=== PATIENT | male | born 1995 ===

== ENCOUNTER 2023-08-10 17:30 | Emergency (ER) | payer OTHER, SELFPAY ==
--- NOTE | ~2023-08-10 | XR_ITS ---
Radiograph bilateral hands and wrists CLINICAL HISTORY: Punched TV, laceration, pain. COMPARISON: No relevant prior studies are available for comparison. TECHNIQUE: 4 views of each hand/wrist were obtained. FINDINGS: Soft tissue thickening and laceration surrounding the fifth digit/small finger with a small approximately 4 mm radiodensity in the soft tissues adjacent to the distal aspect of the fifth metacarpal. No acute fractures or malalignment. XR/XR hand wrist LT IMPRESSION: 1. No acute fractures or malalignment. 2. Soft tissue thickening and laceration surrounding the fifth digit/small finger of the left hand with a 4 mm radiodensity in the soft tissues adjacent to the fifth metacarpal that could represent a foreign body, correlate with physical examination.
--- NOTE | ~2023-08-10 | XR_ITS ---
Radiograph bilateral hands and wrists CLINICAL HISTORY: Punched TV, laceration, pain. COMPARISON: No relevant prior studies are available for comparison. TECHNIQUE: 4 views of each hand/wrist were obtained. FINDINGS: Soft tissue thickening and laceration surrounding the fifth digit/small finger with a small approximately 4 mm radiodensity in the soft tissues adjacent to the distal aspect of the fifth metacarpal. No acute fractures or malalignment. XR/XR hand wrist RT IMPRESSION: 1. No acute fractures or malalignment. 2. Soft tissue thickening and laceration surrounding the fifth digit/small finger of the left hand with a 4 mm radiodensity in the soft tissues adjacent to the fifth metacarpal that could represent a foreign body, correlate with physical examination.
[2023-08-10 17:42] VITALS: BP 141/89; PULSE 80; RESP 18; TEMP 37.7; O2SAT 99; BMI 27.5
--- NOTE | 2023-08-10 17:51 | ED_ITS ---
HPI - Wound/Laceration General Chief Complaint: Wound/Laceration Stated Complaint: left hand lac Time Seen by Provider: 08/10/23 20:07 Source: patient Mode of arrival: ambulatory Limitations: no limitations History of Present Illness HPI narrative: Patient is a 28-year-old male right-hand dominant presents emergency department for evaluation. He reports punching a television with bilateral hands prior to arrival. Reports pain to both hands diffusely but left is worse than right. He is unsure of the date of his last tetanus vaccination. He denies any numbness or tingling to the hands, Related Data Allergies Allergy/AdvReac Type Severity Reaction Status Date / Time No Known Allergies Allergy Verified 08/11/23 00:14 Review of Systems Review of Systems: Yes all other systems are reviewed and are negative [facility] Past Medical History Attestation statement: The following information was validated with the patient. Source: old records reviewed Social History Social History Do you have a plan to hurt others: No Plan Physical Exam Vital Signs: Vital Signs: Last Vital Signs Temp 99.9 F 08/10/23 17:42 Pulse 80 08/10/23 17:42 Resp 18 08/10/23 17:42 BP 141/89 H 08/10/23 17:42 Pulse Ox 99 08/10/23 17:42 O2 Del Method Room Air 08/10/23 17:42 BMI result Body Mass Index 27.5 Appearance: Alert.?Oriented to person, place and time. No acute distress.?Normal affect. Neck: Normal inspection.? Neck supple.?? CVS: Heart sounds normal. Normal heart rate and rhythm.? Pulses normal.?? Respiratory: No respiratory distress.? Lung sounds clear to auscultation bilaterally?? Abdomen: Soft and non-tender. Normoactive bowel sounds. No pulsatile mass.?? Skin: Skin warm and dry.? Normal skin color.? ? 1 inch Laceration to dorsal aspect of left hand between 4th and 5th MCP Extremities: Full range of motion to bilateral hands/digit/wrist. 2+ radial pulse bilaterally. Neuro: Moves all extremities spontaneously. Sensation intact bilaterally. Ambulates with normal steady gait. Course Course Course Narrative: This is a rapid medical exam performed by Chele Hewitt NP: Additional HPI, ROS, PE not included below will be deferred to primary provider. Patient is a 28-year-old right-hand dominant male presenting to the emergency department with complaint of pain and laceration to his left hand after punching televisions prior to arrival. Also complains of right hand pain and states he was punching televisions with his right hand as well but has more pain in the laceration to his left hand. Unsure last Tdap. 1 irregular laceration over 4th mcp of left hand. Plan: Update Tdap, x-rays Medical Decision Making Medical Decision Making MDM Narrative: Patient is a 28-year-old male who presents emergency department for evaluation of bilateral hand pain traumatic in nature as per HPI. Patient was made aware that Laceration over the 4th MCP will require suture repair. XR was obtained to exclude any fracture/dislocation in addition to foreign body. Nursing staff made me aware that while awaiting re-evaluation patient was becoming frustrated with weight time and left without completing treatment. XR does not show evidence of fracture/dislocation, there is however radiopaque density lateral to the 5th MCP concerning for retained foreign body. Differential Diagnosis Differential Diagnoses: The differential diagnosis associated with the presentation includes (See narrative above) Independent Interpretation I performed an independent interpretation of an: Plain X-Ray (No acute fracture) Radiology Impression Discussion of test interpretation with radiology: I have reviewed the r adiologist's reading. Radiologist Impression: XR/XR hand wrist LT IMPRESSION: 1. No acute fractures or malalignment. 2. Soft tissue thickening and laceration surrounding the fifth digit/small finger of the left hand with a 4 mm radiodensity in the soft tissues adjacent to the fifth metacarpal that could represent a foreign body, correlate with physical examination. Prescription Management I considered prescription management with: Pain Medication Discharge Plan Discharge Clinical Impression: Laceration Patient Disposition: Left W/O Completing Treatment Discharge Date/Time: 08/10/23 21:02
--- NOTE | 2023-08-10 20:45 | PC.NURSE ---
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
== END 2023-08-10 21:02 | disposition left against medical advice (07) ==
PROVIDERS: Emergency Provider Internal Medicine
DX: S61.411A Laceration without foreign body of right hand, initial encounter (principal); S61.412A Laceration without foreign body of left hand, initial encounter; M79.642 Pain in left hand; M79.641 Pain in right hand; M25.532 Pain in left wrist; M25.531 Pain in right wrist; W25.XXXA Contact with sharp glass, initial encounter; Y93.9 Activity, unspecified; Y92.9 Unspecified place or not applicable; Y99.8 Other external cause status
CPT/HCPCS: 73110; 73130; 99281; 99283

== ENCOUNTER 2023-08-11 00:11 | Emergency (ER) | payer SELFPAY ==
[2023-08-11 00:13] VITALS: BP 154/94; PULSE 71; RESP 18; TEMP 36.5; O2SAT 98; BMI 25.1
--- NOTE | 2023-08-11 01:10 | ED_ITS ---
HPI - Extremity Problem General Chief complaint: Extremity Injury, Upper Stated complaint: wound on hand Time Seen by Provider: 08/11/23 00:53 Source: patient Mode of arrival: ambulatory Limitations: no limitations History of Present Illness ED Provider: DR. 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 Complaining of bilateral hands pain Related Data Previous Rx's ?Medication ?Instructions ?Recorded doxycycline hyclate 100 mg tablet 100 mg PO BID #20 tabs 08/11/23 Allergies Allergy/AdvReac Type Severity Reaction Status Date / Time No Known Allergies Allergy Verified 08/11/23 00:14 Review of Systems Review of Systems: All other systems are reviewed and are negative Constitutional: Reports as per HPI and Reports no additional constitutional complaints Eyes: Reports as per HPI and Reports no additional eye complaints Reports system reviewed and no additional complaints, except as documented Cardiovascular: Reports as per HPI and Reports no additional cardiovascular complaints Respiratory: Reports as per HPI and Reports no additional respiratory complaints Gastrointestinal: Reports as per HPI and Reports no additional gastrointestinal complaints Genitourinary: Reports no additional female genitourinary complaints Musculoskeletal: Reports no additional musculoskeletal complaints Skin/Breast: Reports system reviewed and no additional complaints, except as docu Psychiatric: Reports no additional psychiatric complaints Endocrine: Reports no additional endocrine complaints Hematologic/Lymphatic: Reports no additional hematologic/lymphatic complaints Allergic/Immunologic: Reports no additional allergic/immunologic complaints Reports system reviewed and no additional complaints, except as documented and Reports Abnormal speech present [facility] Social History Social History Advance Directives: No Advance Directives Information Provided: No Do you have a plan to hurt others: No Plan Physical Exam Vital Signs: Vital Signs: Last Vital Signs Temp 99.4 F 08/11/23 01:45 Pulse 66 08/11/23 01:45 Resp 16 08/11/23 01:45 BP 123/72 08/11/23 01:45 Pulse Ox 97 08/11/23 01:45 O2 Del Method Room Air 08/11/23 01:45 BMI result Body Mass Index 25.1 Vital signs have been reviewed and appear to be correct. Blood pressure elevated. Heart rate normal. Respiratory rate normal. Temperature normal. Oxygen saturation normal. Appearance: Alert. Oriented X3. No acute distress. Head: Normal external exam. Normocephalic. Atraumatic. No Núñez signs noted. No raccoon eyes noted Eyes: PERRLA. EOMI. Conjunctiva and sclera normal. Eyelids normal. ENT: TM's Normal. Pharynx normal. Uvula midline. Moist mucous membranes. No trismus noted. No drooling noted. No muffled voice noted. Neck: Normal inspection. Neck supple. FROM. No adenopathy. Thyroid Normal. No meningeal signs. No neck mass noted. CVS: Normal heart rate and rhythm. Heart sound normal. No murmurs noted. Pulses normal throughout. Respiratory: No respiratory distress. Painless inspiration. Breath sounds normal. No wheezes/rales/rhonchi noted. Chest nontender. No accessory muscle usage noted or decreased air movement noted. Abdomen: Soft and nontender. Bowel sounds normal in all 4 quadrants. No distention noted. No organomegaly noted. No visible injury noted. Back: No CVA tenderness. Full range of motion noted. Skin: Skin warm and dry. Normal skin color. Normal skin turgor. No rashes/lesions/lacerations noted. Extremities: 4x 5 cm area of missing skin on the dorsum of left hand between the 4th and 5th digit, no active bleeding, no foreign body, full range of motion to all fingers. Neurovascularly intact bilaterally. Neuro: Oriented X 3. Cranial nerve exam: II-XII are grossly intact No motor deficit. No sensory deficit. Reflexes normal. Course Reevaluation(s) Reevaluation #1: Bilateral hand injury with old laceration and missing skin on the left hand. Tetanus booster, start doxycycline, wound care. Time: 01:16 Medications Administered Discontinued Medications Generic Name Dose Route Start Last Admin Trade Name Freq PRN Reason Stop Dose Admin Bacitracin 1 appl 08/11/23 01:04 08/11/23 01:11 Bacitracin Oint 0.9 Gm Packet TOPICAL 08/11/23 01:05 1 appl ONCE ONE Administration Protocol Diphtheria/Tetanus/Acell Pertussis 0.5 ml 08/11/23 01:03 08/11/23 01:11 Diphth,Pertus(Acell),Tet Adult 0.5 Ml Syringe IM 08/11/23 01:04 0.5 ml .ONCE ONE Administration Doxycycline Monohydrate 100 mg 08/11/23 01:03 08/11/23 01:11 Doxycycline Monohydrate 100 Mg Capsule PO 08/11/23 01:04 100 mg ONCE ONE Administration Medical Decision Making Differential Diagnosis Differential Diagnoses: The differential diagnosis associated with the presentation includes (Fracture, foreign body, simple laceration, tetanus update, start antibiotic.) Admission/Observation Consideration of admission/observation: Escalation of care including admission/observation considered Lab Data Labs: Lab Results 08/11/23 Range/Units 01:38 POC Glucose 96 (60-115) mg/dL Independent Interpretation I performed an independent interpretation of an: Plain X-Ray (Bilateral hands:1. No acute fractures or malalignment. 2. Soft tissue thickening and laceration surrounding the fifth digit/small finger of the left hand with a 4 mm radiodensity in the soft tissues adjacent to the fifth metacarpal that could represent a foreign body, correlate with physical exami) Radiology Impression Discussion of test interpretation with radiology: I have reviewed the radiologist's reading. (1. No acute fractures or malalignment. 2. Soft tissue thickening and laceration surrounding the fifth digit/small finger of the left hand with a 4 mm radiodensity in the soft tissues adjacent to the fifth metacarpal that could represent a foreign body, correlate with physical examination. ) Procedures Laceration Laceration 1: Site: hand Side (If applicable): left Size (cm): 5 Description: flap Depth: simple, single layer Local Anesthetic: lidocaine 2% Amount of anesthesia used (mL): 5 Pre-repair: wound explored and irrigated extensively Skin layer closed with: nylon Size (cm): 5-0 Number of sutures: 7 Technique: simple, interrupted Discharge Plan Discharge Clinical Impression: Laceration of hand, left, Contusion of hand, left, Contusion of hand, right Patient Disposition: Home, Self-Care Instructions: Laceration (ED), Contusion in Adults (ED) Additional Instructions: Come back in 7-10 days for suture removal. Prescriptions: New doxycycline hyclate 100 mg tablet 100 mg PO BID Qty: 20 0RF Stand Alone Forms: Work/School Release Print Language: Ghanaian
[2023-08-11] MEDS: Diphth,Pertus(ACell),Tet Adult 0.5 ML SYRINGE IM (01:11)
[2023-08-11] MEDS: Bacitracin Oint 0.9 GM PACKET 1 APPL TOPICAL (01:11)
[2023-08-11] MEDS: Doxycycline Monohydrate 100 MG CAPSULE PO (01:11)
[2023-08-11 01:45] VITALS: BP 123/72; PULSE 66; RESP 16; TEMP 37.4; O2SAT 97
[2023-08-11 01:47] LABS: Glucose, Whole Blood 96 mg/dL (60-115)
--- NOTE | 2023-08-11 01:53 | MHC.EDTECH ---
Patient lac on left ring finger was clean and irrigated with Paroxide and saline ,And bacitracin oinment applied, lac was dress with non stick dressing .vitals taken and blood sugar check ,Patient drank some orange orange juice .
[2023-08-11 02:02] VITALS: BP 123/72; PULSE 66; RESP 16; TEMP 37.4; O2SAT 97
== END 2023-08-11 02:03 | disposition home or self-care (01) ==
PROVIDERS: Emergency Provider Emergency Medicine
DX: S61.412A Laceration without foreign body of left hand, initial encounter (principal); W22.8XXA Striking against or struck by other objects, initial encounter; Y93.9 Activity, unspecified; Y92.9 Unspecified place or not applicable; Y99.9 Unspecified external cause status; M79.642 Pain in left hand; M79.641 Pain in right hand; Z23 Encounter for immunization
CPT/HCPCS: 12002; 82947; 90471; 90715; 99284

== ENCOUNTER 2023-08-22 16:51 | Emergency (ER) | payer OTHER, SELFPAY ==
[2023-08-22 16:56] VITALS: BP 145/94; PULSE 76; RESP 18; TEMP 37; O2SAT 97; BMI 27.8
--- NOTE | 2023-08-22 17:06 | ED_ITS ---
HPI - General Adult General Chief complaint: General Medical Stated complaint: needs stitches removed Time Seen by Provider: 08/22/23 17:06 Source: patient Mode of arrival: ambulatory Limitations: no limitations History of Present Illness ED Provider: Maritza Barrett PA-C HPI narrative: Patient is a 28 year old assigned male at with no reported medical history presenting to the emergency department today for left hand suture removal. Patient states that he was seen here on 08/11/2023 for a left hand laceration. Patient states that at that time, he was given 5 stitches and doxycycline. Patient denies any dizziness, lightheadedness, abdominal pain, nausea, vomiting, fever, chills, blurry vision, double vision, loss of vision, chest pain, difficulty breathing, shortness of breath, back pain, night sweats, pain with urination, increased urinary frequency, increased urinary urgency, blood in his urine or stool, syncope or a near syncopal episode, bowel incontinence, bladder incontinence, or any other complaints at this time. Patient states that he has been taking his medication as prescribed. Patient states that his left 5th finger has not been able to fully extend since the injury. Relieving factors: none Exacerbating factors: none Associated symptoms: denies other symptoms Treatments prior to arrival: other (Doxycycline as prescribed) Related Data Previous Rx's ?Medication ?Instructions ?Recorded doxycycline hyclate 100 mg tablet 100 mg PO BID #20 tabs 08/11/23 cephalexin 500 mg capsule 500 mg PO Q6H 7 days #28 caps 08/22/23 doxycycline hyclate 100 mg tablet 100 mg PO BID 7 days #14 tabs 08/22/23 Allergies Allergy/AdvReac Type Severity Reaction Status Date / Time No Known Allergies Allergy Verified 08/22/23 17:00 Review of Systems Constitutional: Constitutional: Reports no additional constitutional complaints, Denies chills, Denies fever(s) and Denies night sweats Eyes: Eyes: Reports no additional eye complaints, Denies blurry vision, Denies change in vision, Denies diplopia, Denies eye discharge, Denies loss of vision and Denies eye pain ENT: Denies dizziness Cardiovascular: Cardiovascular: Reports no additional cardiovascular complaints, Denies chest pain, Denies lightheadedness, Denies Loss of Consciousness and Denies dyspnea Respiratory: Respiratory: Reports no additional respiratory complaints and Denies dyspnea Gastrointestinal: Gastrointestinal: Reports no additional gastrointestinal complaints, Denies abdominal pain, Denies melena, Denies hematochezia, Denies change in bowel habits and Denies change in stool character Genitourinary: Genitourinary: Reports no additional male genitourinary complaints, Denies hematuria, Denies oliguria, Denies difficulty urinating, Denies dysuria, Denies urinary frequency, Denies urinary hesitancy, Denies urinary incontinence and Denies urinary urgency Musculoskeletal: Musculoskeletal: Reports no additional musculoskeletal complaints, Denies numbness and Denies tingling Comments: 5 sutures present in dorsal left hand inability to straighten left 5th digit Neurologic: Denies dizziness, Denies loss of vision, Denies numbness and Denies tingling Psychiatric: Psychiatric: Reports no additional psychiatric complaints Endocrine: Endocrine: Reports no additional endocrine complaints Hematologic/Lymphatic: Hematologic/Lymphatic: Reports no additional hematologic/lymphatic complaints Allergic/Immunologic: Allergic/Immunologic: Reports no additional allergic/immunologic complaints PMFSH Past Medical History Attestation statement: The following information was validated with the patient. Source: old records reviewed and nursing notes reviewed Social History Social History Advance Directives: No Advance Directives Information Provided: No Do you have a plan to hurt others: No Plan Physical Exam ED Vital Signs: Vital Signs - 24 hr 08/22/23 16:56 Temperature 98.6 F Pulse Rate 76 Respiratory Rate 18 Blood Pressure 145/94 H Pulse Oximetry 97 Oxygen Delivery Method Room Air BMI result Body Mass Index 27.8 Const General: cooperative, no acute distress, alert and awake Nutritional Appearance: well nourished Orientation/consciousness: patient oriented x3 Limitations: no limitations HENMT Head: Yes normal to inspection and Yes atraumatic Ears: hearing grossly normal bilaterally and external ears normal General nose exam: Normal external nose present, no nasal discharge noted and no epistaxis Face and sinus: Yes normal facial exam, No abrasion and No laceration Mouth: Normal oral and palatal mucosa present, no drooling and no muffled voice Eyes General: appearance normal, both eyes and all related structures Periorbital: periorbital findings normal Eyelids: Yes eyelids normal Conjunctivae: conjunctivae normal Pupils: Equal, round and reactive pupils present EOM: EOMs intact bilaterally Neck Neck: Yes normal visual inspection, Yes full ROM and Yes no lymphadenopathy Chest Chest palpation & inspection: normal inspection of the chest Resp Effort & Inspection: normal respiratory effort and able to speak in complete sentences GI Inspection: Yes normal to inspection Neuro General: patient oriented x3 and moves all extremities Cranial nerves: Yes Equal, round and reactive pupils present Cognition (Neuro): normal cognition Extrem Other: patient unable to fully extend left 5th digit 5 prolene sutures present in the left dorsal hand at the base of the 4th digit angling towards the 5th digit Small area of yellowing within the scab of the left hand wound General: Yes capillary refill normal Psych Appearance: grossly normal Mental Status: mental status grossly normal Affect: normal affect Attitude: cooperative Thought process: Normal thought process present Thought content: Normal thought content present Insight: Good insight present (Psych) Procedures Procedure Narrative Procedure Narrative: Sutures removed from the left dorsal hand as noted in the MDM Rationale portion of this note. Sutures removed without incident. Medical Decision Making Medical Decision Making MDM Narrative: Patient is a 28 year old assigned male at with no reported medical history presenting to the emergency department today for left hand suture removal. Patient's physical exam was as noted in the physical exam portion of this note. I explained my physical exam findings to the patient. I answered all questions asked by the patient. Patient's sutures were removed without incident. Given patient's wound appearance, will extend doxy another week and add cephalexin. Given patient's decreased ROM of the left 5th digit, will refer to orthopedics. I stressed the importance of the patient taking his medication as directed (either prescribed or as the over the counter packaging recommends). I stressed the importance of the patient following up with his primary care provider, wound center, and the orthopedic team. I stressed the importance of the patient returning to the emergency department immediately if his symptoms were to worsen or if he were to develop any dizziness, shortness of breath, difficulty breathing, chest pain, blurry vision, loss of vision, nausea, vomiting, abdominal pain, fever, chills, back pain, or any other complaints. Patient verbalized agreement and understanding with this treatment plan and discharge. Differential Diagnosis Differential Diagnoses: The differential diagnosis associated with the presentation includes Suture removal 5th digit extensor tendon injury Hand cellulitis Admission/Observation Consideration of admission/observation: Escalation of care including admission/observation considered Patient would have been admitted to the hospital had his work up had any findings where hospital admission was appropriate and his clinical presentation warranted hospital admission. Prescription Management I considered prescription management with: Antibiotic (patient prescribed an antibiotic for possible left hand cellulitis) Discharge Plan Discharge Clinical Impression: Encounter for removal of sutures, Cellulitis Patient Disposition: Home, Self-Care Instructions: Cellulitis (DC), Stitches Removal (ED) Additional Instructions: Given some concerning areas of your left hand wound - I've restarted an antibiotic regimen you should take as directed. Additionally, given your concern of your left 5th digit being unable to extend all the way, you should follow up with an orthopedic provider. Follow up with your primary care provider. Return to the emergency department immediately if your symptoms worsen or if you develop any dizziness, shortness of breath, difficulty breathing, chest pain, blurry vision, loss of vision, nausea, vomiting, abdominal pain, fever, chills, back pain, or any other complaints. Prescriptions: New cephalexin 500 mg capsule 500 mg PO Q6H 7 Days Qty: 28 0RF doxycycline hyclate 100 mg tablet 100 mg PO BID 7 Days Qty: 14 0RF No Action doxycycline hyclate 100 mg tablet 100 mg PO BID Qty: 20 0RF Referrals: [facility] Family Medicine [Provider Group] (Call to establish and follow up with a primary care provider. If you already have a primary care provider, please follow up with them.) [facility] Primary [facility] [Provider Group] [facility] Primary [facility] [Provider Group] [facility] [Provider Group] (Call to establish and follow up with an orthopedic provider.) [facility] [Provider Group] (Given how large your wound is/was and how it appears to be healing, you should follow up with the wound center. ) Stand Alone Forms: Work/School Release Interventions: ED Discharge Assessment Last Done: 08/22/23 17:14 Print Language: French
[2023-08-22 17:14] VITALS: BP 145/94; PULSE 76; RESP 18; TEMP 37; O2SAT 97
== END 2023-08-22 17:15 | disposition home or self-care (01) ==
PROVIDERS: Emergency Provider Emergency Medicine Emergency Medical Services
DX: L03.114 Cellulitis of left upper limb (principal); Z48.02 Encounter for removal of sutures
CPT/HCPCS: 99282; 99283

== ENCOUNTER 2023-08-27 15:06 | Outpatient (AMB) | payer OTHER, SELFPAY ==
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
== END 2023-08-27 15:23 | disposition home or self-care (01) ==
DX: S61.412A Laceration without foreign body of left hand, initial encounter (principal)
CPT/HCPCS: 99202